=== PATIENT | female | born 1955 | race African-American/Black ===

== ENCOUNTER 2019-01-27 19:43 | Emergency (ER) | payer MEDICARE, OTHER ==
[~2019-01-27] VITALS: Ht 162.6 cm; Wt 91.0 kg
[2019-01-27] MEDS ORDERED: TETANUS, DIPHTHERIA, PERTUSSIS VAC/PF 0.5ML (>7YR OLD) IM ONE (20:45)
[2019-01-27] MEDS ORDERED: LIDOCAINE HCL/PF 1% 10 MG/ML 5ML VIAL IJ ONE (20:45)
[2019-01-27] MEDS ORDERED: BACITRACIN ZINC OINT UDPKT TOP ONE (20:45)
[2019-01-27] MEDS ORDERED: IBUPROFEN 800MG TABLET PO ONE (20:45)
[2019-01-27 22:14] VITALS: BP 130/58
== END 2019-01-27 23:04 | disposition home or self-care (01) ==
LOC: ER 19:43
DX: S91.211A Laceration without foreign body of right great toe with damage to nail, initial encounter (principal); I10 Essential (primary) hypertension; E78.00 Pure hypercholesterolemia, unspecified; E11.9 Type 2 diabetes mellitus without complications; Z88.5 Allergy status to narcotic agent; Z88.2 Allergy status to sulfonamides; Z90.710 Acquired absence of both cervix and uterus; X58.XXXA Exposure to other specified factors, initial encounter; Y93.89 Activity, other specified; Y92.89 Other specified places as the place of occurrence of the external cause; Y99.8 Other external cause status
CPT/HCPCS: 11730; 73660; 90471; 90715; 99283; J3490

== ENCOUNTER 2019-01-30 09:46 | Emergency (ER) | payer MEDICARE, OTHER ==
[~2019-01-30] VITALS: Ht 167.6 cm; Wt 90.0 kg
[2019-01-30 09:55] VITALS: BP 142/70
== END 2019-01-30 11:00 | disposition home or self-care (01) ==
LOC: ER 10:30
DX: Z48.00 Encounter for change or removal of nonsurgical wound dressing (principal)
CPT/HCPCS: 82962; 99282

== ENCOUNTER 2019-02-24 11:36 | Emergency (ER) | payer MEDICARE, OTHER ==
[~2019-02-24] VITALS: Ht 167.6 cm; Wt 89.0 kg
[2019-02-24 12:02] VITALS: BP 135/64
[2019-02-24] MEDS ORDERED: FOLIC ACID (12:09)
[2019-02-24] MEDS ORDERED: METH2.5T PO (12:09)
== END 2019-02-24 12:46 | disposition home or self-care (01) ==
LOC: ER 11:36
DX: R21 Rash and other nonspecific skin eruption (principal); E11.9 Type 2 diabetes mellitus without complications; I10 Essential (primary) hypertension; E78.00 Pure hypercholesterolemia, unspecified; Z90.710 Acquired absence of both cervix and uterus; Z88.2 Allergy status to sulfonamides; Z88.5 Allergy status to narcotic agent
CPT/HCPCS: 99283

== ENCOUNTER 2019-03-03 07:08 | Emergency (ER) | payer MEDICARE, OTHER ==
[~2019-03-03] VITALS: Ht 162.6 cm; Wt 89.0 kg
[~2019-03-03 07:08] MED LIST: FOLIC ACID; METH2.5T PO
[2019-03-03 07:35] VITALS: BP 140/72
== END 2019-03-03 08:25 | disposition home or self-care (01) ==
LOC: ER 07:08
DX: R21 Rash and other nonspecific skin eruption (principal); E11.9 Type 2 diabetes mellitus without complications; E78.00 Pure hypercholesterolemia, unspecified; I10 Essential (primary) hypertension; Z90.710 Acquired absence of both cervix and uterus; Z88.5 Allergy status to narcotic agent; Z88.2 Allergy status to sulfonamides
CPT/HCPCS: 99283

== ENCOUNTER 2019-05-26 13:50 | Emergency (ER) | payer MEDICARE, OTHER ==
[~2019-05-26] VITALS: Ht 160 cm; Wt 91.0 kg
[2019-05-26] MEDS ORDERED: KETOROLAC 60MG/2ML VIAL IM ONE (15:30)
[2019-05-26 16:03] VITALS: BP 135/82
== END 2019-05-26 16:06 | disposition home or self-care (01) ==
LOC: ER 13:50
DX: G89.18 Other acute postprocedural pain (principal); M54.2 Cervicalgia; I10 Essential (primary) hypertension; E11.9 Type 2 diabetes mellitus without complications; E78.00 Pure hypercholesterolemia, unspecified; Z98.1 Arthrodesis status; Z88.5 Allergy status to narcotic agent; Z90.710 Acquired absence of both cervix and uterus
CPT/HCPCS: 96372; 99283; J1885

== ENCOUNTER 2019-08-25 08:37 | Emergency (ER) | payer MEDICARE, OTHER ==
[~2019-08-25] VITALS: Ht 162.6 cm; Wt 90.0 kg
[2019-08-25 08:45] VITALS: BP 157/76
== END 2019-08-25 10:57 | disposition home or self-care (01) ==
LOC: ER 08:37
DX: H10.021 Other mucopurulent conjunctivitis, right eye (principal); H01.00A Unspecified blepharitis right eye, upper and lower eyelids; E11.9 Type 2 diabetes mellitus without complications; I10 Essential (primary) hypertension; E66.9 Obesity, unspecified; Z68.34 Body mass index [BMI] 34.0-34.9, adult; Z88.5 Allergy status to narcotic agent
CPT/HCPCS: 99283

== ENCOUNTER 2021-01-24 17:48 | Emergency (ER) | payer OTHER, MEDICAID ==
[~2021-01-24] VITALS: Ht 162.6 cm; Wt 93.0 kg
[2021-01-24] MEDS ORDERED: CLIN300C12 MT (20:35)
[2021-01-24 20:47] VITALS: BP 142/76
== END 2021-01-24 20:48 | disposition home or self-care (01) ==
LOC: ER 17:48
DX: L02.31 Cutaneous abscess of buttock (principal); E11.9 Type 2 diabetes mellitus without complications; I10 Essential (primary) hypertension; E78.00 Pure hypercholesterolemia, unspecified; Z90.710 Acquired absence of both cervix and uterus; Z88.5 Allergy status to narcotic agent; Z88.8 Allergy status to other drugs, medicaments and biological substances
CPT/HCPCS: 99281

== ENCOUNTER 2021-07-19 12:23 | Emergency (ER) | payer OTHER, MEDICAID ==
[~2021-07-19] VITALS: Ht 165.1 cm; Wt 91.0 kg
[~2021-07-19 12:23] MED LIST changes: +CLIN300C12 MT
[2021-07-19 12:39] VITALS: BP 123/77
[2021-07-19 14:22] LABS: BASOPHILS % 0.7 % (0.0-2.0); EOSINOPHILS % 1.5 % (0.0-5.0); HEMATOCRIT. 34.8 % (36.0-48.0); HEMOGLOBIN. 11.8 g/dL (12.0-16.0); LYMPHOCYTES % 25.4 % (20.0-50.0); MEAN CORPUSCULAR VOLUME 85.3 fL (81.0-99.0); MEAN PLATELET VOLUME 8.2 fl (7.4-10.4); MONOCYTES % 6.7 % (2.0-8.0); NEUTROPHILS % 65.7 % (40.0-76.0); PLATELET 284 x1000/uL (130-400); RED BLOOD CELL COUNT 4.08 mill/uL (4.2-5.4); RED CELL DISTRIBUTION WIDTH 13.2 % (11.6-14.6)
[2021-07-19 14:28] LABS: CHLORIDE 101 mEq/L (98-107)
[2021-07-19] MEDS ORDERED: FAMO20TA8 PO (16:42)
== END 2021-07-19 17:00 | disposition home or self-care (01) ==
LOC: ER 12:23
DX: R13.10 Dysphagia, unspecified (principal); E11.9 Type 2 diabetes mellitus without complications; I10 Essential (primary) hypertension; E78.00 Pure hypercholesterolemia, unspecified; Z90.710 Acquired absence of both cervix and uterus; Z88.5 Allergy status to narcotic agent; Z88.2 Allergy status to sulfonamides
CPT/HCPCS: 36415; 80048; 82962; 84443; 85025; 87070; 87430; 99283

== ENCOUNTER 2021-12-04 11:36 | Emergency (ER) | payer OTHER, MEDICAID ==
[~2021-12-04] VITALS: Ht 162.6 cm; Wt 90.0 kg
[~2021-12-04 11:36] MED LIST changes: +FAMO20TA8 PO
[2021-12-04 12:02] LABS: BASOPHILS % 1.1 % (0.0-2.0); EOSINOPHILS % 2.5 % (0.0-5.0); HEMATOCRIT. 34.6 % (36.0-48.0); HEMOGLOBIN. 11.4 g/dL (12.0-16.0); MEAN CORPUSCULAR HEMOGLOBIN 28.1 pg (28.0-32.0); MEAN CORPUSCULAR VOLUME 85.1 fL (81.0-99.0); MONOCYTES % 6.4 % (2.0-8.0); PLATELET 275 x1000/uL (130-400); RED BLOOD CELL COUNT 4.07 mill/uL (4.2-5.4); RED CELL DISTRIBUTION WIDTH 13.8 % (11.6-14.6)
[2021-12-04 12:08] LABS: CHLORIDE 105 mEq/L (98-107)
[2021-12-04 15:45] VITALS: BP 129/70
[2021-12-04 16:07] LABS: CLARITY URINE CLEAR (CLEAR); COLOR URINE YELLOW (YELLOW); KETONES URINE NEGATIVE (NEGATIVE); LEUKOCYTE ESTERASE URINE TRACE (NEGATIVE); NITRITE URINE NEGATIVE (NEGATIVE); OCCULT BLOOD URINE NEGATIVE (NEGATIVE); PH URINE 6.5 (4.5-8.0); PROTEIN URINE NEGATIVE (NEGATIVE); SPECIFIC GRAVITY URINE 1.012 (1.005-1.030); UROBILINOGEN URINE 0.2 E.U./dL (0.2-1.0)
[2021-12-04] MEDS ORDERED: NAP5EC MT (17:16)
[2021-12-04] MEDS ORDERED: CEPH500C2 MT (17:16)
== END 2021-12-04 17:44 | disposition home or self-care (01) ==
LOC: ER 12:12
DX: K57.90 Diverticulosis of intestine, part unspecified, without perforation or abscess without bleeding (principal); I10 Essential (primary) hypertension; E11.9 Type 2 diabetes mellitus without complications; E78.00 Pure hypercholesterolemia, unspecified; Z88.5 Allergy status to narcotic agent; Z91.048 Other nonmedicinal substance allergy status; Z98.890 Other specified postprocedural states
CPT/HCPCS: 36415; 74176; 80053; 81003; 85025; 99284

== ENCOUNTER 2022-04-23 06:15 | Emergency (ER) | payer OTHER, MEDICAID ==
[~2022-04-23] VITALS: Ht 162.6 cm; Wt 88.7 kg
[~2022-04-23 06:15] MED LIST changes: +CEPH500C2 MT; +CLIN-194 MT; -CLIN300C12 MT; +NAP5EC MT
[2022-04-23 06:36] VITALS: BP 147/52
[2022-04-23 08:24] LABS: BASOPHILS % 1.1 % (0.0-2.0); EOSINOPHILS % 3.3 % (0.0-5.0); HEMATOCRIT. 37.1 % (36.0-48.0); HEMOGLOBIN. 12.1 g/dL (12.0-16.0); LYMPHOCYTES % 34.1 % (20.0-50.0); MEAN CORPUSCULAR HEMOGLOBIN 27.6 pg (28.0-32.0); MEAN CORPUSCULAR VOLUME 84.5 fL (81.0-99.0); MEAN PLATELET VOLUME 8.3 fl (7.4-10.4); MONOCYTES % 7.4 % (2.0-8.0); NEUTROPHILS % 54.1 % (40.0-76.0); PLATELET 317 x1000/uL (130-400); RED BLOOD CELL COUNT 4.39 mill/uL (4.2-5.4); RED CELL DISTRIBUTION WIDTH 13.8 % (11.6-14.6)
[2022-04-23 08:35] LABS: CHLORIDE 105 mEq/L (98-107)
== END 2022-04-23 09:17 | disposition home or self-care (01) ==
LOC: ER 06:15
DX: R59.0 Localized enlarged lymph nodes (principal); E78.00 Pure hypercholesterolemia, unspecified; I10 Essential (primary) hypertension; Z88.5 Allergy status to narcotic agent
CPT/HCPCS: 36415; 80053; 85025; 99283

== ENCOUNTER 2023-01-13 11:59 | Emergency (ER) | payer OTHER, MEDICAID ==
[~2023-01-13] VITALS: Ht 162.6 cm; Wt 84.0 kg
[2023-01-13 12:10] VITALS: BP 106/55
[2023-01-13 12:46] LABS: BASOPHILS % 0.9 % (0.0-2.0); EOSINOPHILS % 1.6 % (0.0-5.0); HEMATOCRIT. 34.5 % (36.0-48.0); HEMOGLOBIN. 11.7 g/dL (12.0-16.0); LYMPHOCYTES % 28.7 % (20.0-50.0); MEAN CORPUSCULAR HEMOGLOBIN 28.7 pg (28.0-32.0); MEAN CORPUSCULAR VOLUME 84.9 fL (81.0-99.0); MEAN PLATELET VOLUME 8.8 fl (7.4-10.4); MONOCYTES % 6.5 % (2.0-8.0); NEUTROPHILS % 62.3 % (40.0-76.0); PLATELET 277 x1000/uL (130-400); RED BLOOD CELL COUNT 4.07 mill/uL (4.2-5.4); RED CELL DISTRIBUTION WIDTH 13.5 % (11.6-14.6)
[2023-01-13 12:54] LABS: CHLORIDE 103 mEq/L (98-107)
== END 2023-01-13 15:10 | disposition home or self-care (01) ==
LOC: ER 11:59
DX: E11.65 Type 2 diabetes mellitus with hyperglycemia (principal); I49.9 Cardiac arrhythmia, unspecified; I10 Essential (primary) hypertension; Z88.5 Allergy status to narcotic agent; Z88.2 Allergy status to sulfonamides
CPT/HCPCS: 36415; 80053; 85025; 93005; 99284